=== PATIENT | male | born 1990 | race Two or more races ===

== ENCOUNTER 2021-12-20 05:36 | Observation (INO) ==
[2021-12-20] MEDS ORDERED: NS 500 ML IV 500 ML IV ONE (06:05)
[2021-12-20] MEDS ORDERED: LEVSIN/MAALOX/LIDOC VISC PO ONE (06:15)
--- NOTE | 2021-12-20 06:15 | DR.ABDMALE ---
HPI Time seen Time Seen by Provider: 12/20/21 06:03 PCP Primary Care Physician: ANSHUL HPI comment HPI Comment: A 31 y/o male presentiing with c/o epigastric and RUQ pain onset at about 0300 hrs. today. He can't adequately characterize the pain. It is non-radiating. This pain has been intermittent for a while. He relates a hx. of Gastritis. The pain is exacerbated by certain foods. He denies alcohol consumption. There is no associated nausea or vomiting. We had a friend of his translating for us via telephone. Complaint Chief Complaint:: PATIENT C/O A LOT OF PAIN IN STOMACH. PATIENT STATES PAIN IS ON THE RIGHT SIDE. PATIENT STATES PAIN STARTED AROUND 3AM AND DENIES TAKING ANYTHING FOR PAIN. COVID-19 Coronavirus risk:travel/contact w/high risk person: No Has patient experienced Coronavirus symptoms: No Reviewed Nurses Notes Review: Yes Mode of arrival Mode of Arrival: Ambulatory Timing Onset of Chief Complaint: 12/20/21 Came on: Suddenly Location Location: RUQ and Epigastric Severity Severity: Moderate Context Onset: Gradually and At Rest History of: None Modifying factors Worsening Factors: Food Improving Factors: Antacids Associated signs and symptoms Associated Signs and Symptoms: None PMH PMH Past Medical History: Yes Past Medical History Comment: Gastritis Past Surgical History: No Family History History of Family Medical Conditions: No Social History Alcohol Use: Occasionally Do you use any recreational Drugs:: No Lives With: Significant Other Lives Where: Home Travel Risk Coronavirus risk:travel/contact w/high risk person: No Has patient experienced Coronavirus symptoms: No Infectious screening Have you traveled outside the country in the last 6 months?: No Isolation: Standard ROS Review of Systems Constitutional: No Symptoms Reported Eyes: No Symptoms Reported ENTM: No Symptoms Reported Respiratoy: No Symptoms Reported Cardiovascular: No Symptoms Reported Gastrointestinal/Abdominal: Abdominal Pain (epigastric area) Genitourinary: No Symptoms Reported Neurological: No Symptoms Reported Musculoskeletal: No Symptoms Reported Integumentary: No Symptoms Reported Hematologic/Lymphatic: No Symptoms Reported Endocrine: No Symptoms Reported Psychiatric: No Symptoms Reported PE Vital Signs Vital Signs: Temp Pulse Resp BP Pulse Ox 12/20/21 06:21 16 12/20/21 05:38 97.2 F L 62 16 123/72 99 General Limitations: No Limitations General Appearance: Alert and In No Apparent Distress Head Head Exam: Normal Inspection, Atraumatic and Normocephalic Eyes Eye exam: Normal Appearance and EOMI ENT ENT Exam: Normal Exam, Normal Oropharynx, Normal External Ear Exam and Mucous Membranes Moist Neck Neck Exam: Normal Inspection, Full ROM and Trachea Midline Chest Chest Inspection: Normal Inspection and Symmetric Chest Wall Rise Respiratory Respiratory Exam: Normal Lung Sounds Bilat Cardiovascular Cardiovascular Exam: Regular Rate, Normal Rhythm, Normal Heart Sounds, +S1 and +S2 Abdominal Exam Abdominal Exam: Normal Inspection, Normal Bowel Sounds, Soft and Tenderness; negative Distention, Guarding, Rebound, Rigidity, Dimnished Bowel Sounds, Hyperactive Bowel Sounds, Hypoactive Bowel Sounds, Organomegaly, Trauma, Incision, Ascites, Mass, Bruit, Pulsatile Mass and Hernia Abdominal Tenderness: RUQ and Epigastrium Rectal Rectal Exam: Deferred Back Back Exam: Normal Inspection and Full ROM Extremeties Extremities Exam: Normal Inspection and Full ROM Exam: Male: Deferred Neurologic Neurological Exam: Alert and Oriented X3 Psychiatric Psychiatric Exam: Normal Affect and Normal Mood Skin Skin Exam: Intact COURSE Reevaluation 1st: Unchanged Consultation Consultation Comments: I did inform the pt. about the findings. I spoke with labor relations worker Surgeon (Denise) and he agree to admit the pt. to his service. He will be taken to OR later today. I informed the pt. of the plan also and he is in agree ment with it. Education/Counseling Education/Counseling: Patient, Family, Education and Counseling Educated On: Treatment, Diagnosis, Prognosis and Needs for Follow Up ROR Labs Reviewed Result Diagrams: 12/20/21 06:30 12/20/21 06:30 Laboratory: WBC 11.4 X10^3/uL (3.6-10.0) H 12/20/21 06:30 RBC 5.10 X10^6/uL (4.7-6.0) 12/20/21 06:30 Hgb 15.0 g/dL (13.5-18.0) 12/20/21 06:30 Hct 43.6 % (42.0-54.0) 12/20/21 06:30 MCV 85.5 fL (80.0-100.0) 12/20/21 06:30 MCH 29.5 pg (27.0-34.0) 12/20/21 06:30 MCHC 34.5 g/dL (33.0-35.0) 12/20/21 06:30 RDW 13.4 % (11.6-16.5) 12/20/21 06:30 Plt Count 250 X10^3/uL (150.0-450.0) 12/20/21 06:30 MPV 8.1 fL (7.4-11.0) 12/20/21 06:30 Neut % (Auto) 87.3 % (42.0-75.0) H 12/20/21 06:30 Lymph % (Auto) 7.8 % (21.0-51.0) L 12/20/21 06:30 [place] % (Auto) 4.5 % (0.0-13.0) 12/20/21 06:30 Eos % (Auto) 0.2 % (0.9-2.9) L 12/20/21 06:30 Baso % (Auto) 0.2 % (0.2-1.0) 12/20/21 06:30 Neut # (Auto) 9.9 x10^3/uL (2.2-4.8) H 12/20/21 06:30 Lymph # (Auto) 0.9 X10^3/uL (1.3-2.9) L 12/20/21 06:30 [place] # (Auto) 0.5 x10^3/uL (0.3-0.8) 12/20/21 06:30 Eos # (Auto) 0.0 x10^3/uL (0.0-0.2) 12/20/21 06:30 Baso # (Auto) 0.0 X10^3/uL (0.0-0.1) 12/20/21 06:30 Absolute Nucleated RBC 0.1 /100WBC 12/20/21 06:30 Sodium 146 mmol/L (136-145) H 12/20/21 06:30 Corrected Sodium TNP 12/20/21 06:30 Potassium 4.0 mmol/L (3.5-5.1) 12/20/21 06:30 Chloride 109 mmol/L (98-107) H 12/20/21 06:30 Carbon Dioxide 28.6 mmol/L (21-32) 12/20/21 06:30 BUN 7 mg/dL (7-18) 12/20/21 06:30 Creatinine 0.83 mg/dL (0.70-1.30) 12/20/21 06:30 Est GFR (MDRD) Af Amer > 60 (>60) 12/20/21 06:30 Est GFR (MDRD) Non-Af > 60 (>60) 12/20/21 06:30 Glucose 108 mg/dL (65-99) H 12/20/21 06:30 Calcium 8.4 mg/dL (8.5-10.1) L 12/20/21 06:30 Corrected Calcium TNP 12/20/21 06:30 Total Bilirubin 0.30 mg/dL (0.2-1.0) 12/20/21 06:30 AST 23 Units/L (15-37) 12/20/21 06:30 ALT 60 Units/L (12-78) 12/20/21 06:30 Alkaline Phosphatase 84 Units/L (46-116) 12/20/21 06:30 Total Protein 7.9 g/dL (6.4-8.2) 12/20/21 06:30 Albumin 4.1 g/dL (3.4-5.0) 12/20/21 06:30 Globulin 3.8 g/dL (2.5-4.5) 12/20/21 06:30 Albumin/Globulin Ratio 1.1 Ratio (1.1-2.1) 12/20/21 06:30 Amylase 39 Units/L (25-115) 12/20/21 06:30 Lipase 68 Units/L (73-393) L 12/20/21 06:30 Opioid Opioid Risk Tool Age (Den box if 16-45): Yes Total: 1 Total Score Risk Category: Low Risk Copyright: [facility] predicting aberrant behaviors Diagnosis Discharge Problem: Cholelithiasis and acute cholecystitis without obstruction ADDITIONAL NOTES Additional Notes Additional Notes: Name: Shoaib DEGROOT#: [id number]: [id number] : 1990ex: MLocation: ER Order Number(s): [id number](s):GALL BLADDER Ordering Physician: KAMRON CHAUDHARI Primary Care: NFD,None Service Date: 12/20/21 Service Time: 0610 HISTORY Right upper quadrant pain, nausea STUDY Gallbladder sonogram Technique: Multiple grayscale sonographic images were obtained. COMPARISON None FINDINGS The liver is normal in size and configuration and without cyst, mass, or biliary ductal dilatation. Limited Doppler evaluation was normal. Fall there is a gallstone in the area of the neck of the gallbladder. There is a question of mild gallbladder wall thickening. No pericholecystic fluid or intramural fluid identified. Early cholecystitis is possible. The common duct measures 3.1 mm. The right kidney measured 10.4 cm in length. No solid masses, hydronephrosis, stones, or perinephric fluid collections are identified. The pancreas was obscured by overlying bowel gas. IMPRESSION Cholelithiasis with gallbladder wall thickening possibly indicative of developing acute cholecystitis. If clinically indicated nuclear medicine biliary scan may be of further diagnostic value Electronically signed by: JULES GORMAN (Dec 20, 2021 07:02:05) Report Electronically signed: 12/20/21 0703 CC: Kamron Chaudhari
[2021-12-20] MEDS ORDERED: LEVSIN/MAALOX/LIDOC VISC ONE (06:19)
[2021-12-20 06:48] LABS: BASOPHILS % (AUTO) 0.2 % (0.2-1.0); EOSINOPHILS % (AUTO) 0.2 % (0.9-2.9); HEMATOCRIT 43.6 % (42.0-54.0); LYMPHOCYTES # (AUTO) 0.9 X10^3/uL (1.3-2.9); LYMPHOCYTES % (AUTO) 7.8 % (21.0-51.0); MEAN CORPUSCULAR HEMOGLOBIN 29.5 pg (27.0-34.0); MEAN CORPUSCULAR HGB CONC 34.5 g/dL (33.0-35.0); MEAN CORPUSCULAR VOLUME 85.5 fL (80.0-100.0); MEAN PLATELET VOLUME 8.1 fL (7.4-11.0); MONOCYTES # (AUTO) 0.5 x10^3/uL (0.3-0.8); MONOCYTES % (AUTO) 4.5 % (0.0-13.0); NEUTROPHILS # (AUTO) 9.9 x10^3/uL (2.2-4.8); NEUTROPHILS % (AUTO) 87.3 % (42.0-75.0); RED CELL DISTRIBUTION WIDTH 13.4 % (11.6-16.5); WHITE BLOOD COUNT 11.4 X10^3/uL (3.6-10.0)
--- NOTE | 2021-12-20 07:03 | US ---
HISTORYRight upper quadrant pain, nauseaSTUDYGallbladder sonogramTechnique: Multiple grayscale sonographic images were obtained.COMPARISONNoneFINDINGSThe liver is normal in size and configuration and without cyst, mass, or biliary ductal dilatation. Limited Doppler evaluation was normal. Fall there is a gallstone in the area of the neck of the gallbladder. There is a question of mild gallbladder wall thickening. No pericholecystic fluid or intramural fluid identified. Early cholecystitis is possible. The common duct measures 3.1 mm. The right kidney measured 10.4 cm in length. No solid masses, hydronephrosis, stones, or perinephric fluid collections are identified. The pancreas was obscured by overlying bowel gas.IMPRESSIONCholelithiasis with gallbladder wall thickening possibly indicative of developing acute cholecystitis. If clinically indicated nuclear medicine biliary scan may be of further diagnostic valueElectronically signed by: JULES GORMAN (Dec 20, 2021 07:02:05)
[2021-12-20 07:05] LABS: ALANINE AMINOTRANSFERASE 60 Units/L (12-78); ALBUMIN 4.1 g/dL (3.4-5.0); ALKALINE PHOSPHATASE 84 Units/L (46-116); AMYLASE 39 Units/L (25-115); ASPARTATE AMINO TRANSFERASE 23 Units/L (15-37); BLOOD UREA NITROGEN 7 mg/dL (7-18); CALCIUM 8.4 mg/dL (8.5-10.1); CARBON DIOXIDE 28.6 mmol/L (21-32); CHLORIDE 109 mmol/L (98-107); CREATININE 0.83 mg/dL (0.70-1.30); LIPASE 68 Units/L (73-393); SODIUM 146 mmol/L (136-145); TOTAL PROTEIN 7.9 g/dL (6.4-8.2); eGFR NON BLACK RACES > 60 (>60)
[2021-12-20] MEDS ORDERED: CIPRO IV 400 MG PREMIX* 400 MG/200 ML IV.SOLN. IV ONE ×2 (07:29→07:33)
[2021-12-20] MEDS ORDERED: NS 1,000 ML IV 1,000 ML ONE (07:33)
--- NOTE | 2021-12-20 07:53 | DR.ABDMALE ---
HPI Time seen Time Seen by Provider: 12/20/21 06:03 PCP Primary Care Physician: NFD Complaint Chief Complaint:: PATIENT C/O A LOT OF PAIN IN STOMACH. PATIENT STATES PAIN IS ON THE RIGHT SIDE. PATIENT STATES PAIN STARTED AROUND 3AM AND DENIES TAKING ANY THING FOR PAIN. COVID-19 Coronavirus risk:travel/contact w/high risk person: No Has patient experienced Coronavirus symptoms: No Mode of arrival Mode of Arrival: Ambulatory Timing Onset of Chief Complaint: 12/20/21 Came on: Suddenly PMH PMH Past Medical History: Yes Past Medical History Comment: Gastritis Past Surgical History: No Family History History of Family Medical Conditions: No Social History Alcohol Use: Occasionally Do you use any recreational Drugs:: No Lives With: Significant Other Lives Where: Home Travel Risk Coronavirus risk:travel/contact w/high risk person: No Has patient experienced Coronavirus symptoms: No Infectious screening Have you traveled outside the country in the last 6 months?: No Isolation: Standard PE Vital Signs Vital Signs: Temp Pulse Resp BP Pulse Ox 12/20/21 07:38 116/59 12/20/21 06:21 16 12/20/21 05:38 97.2 F L 62 16 123/72 99 COURSE Treatment Treatment: Pt's. care will be endorsed over to incoming provider (dr. Fierro). ROR Labs Reviewed Result Diagrams: 12/20/21 06:30 12/20/21 06:30 Laboratory: WBC 11.4 X10^3/uL (3.6-10.0) H 12/20/21 06:30 RBC 5.10 X10^6/uL (4.7-6.0) 12/20/21 06:30 Hgb 15.0 g/dL (13.5-18.0) 12/20/21 06:30 Hct 43.6 % (42.0-54.0) 12/20/21 06:30 MCV 85.5 fL (80.0-100.0) 12/20/21 06:30 MCH 29.5 pg (27.0-34.0) 12/20/21 06:30 MCHC 34.5 g/dL (33.0-35.0) 12/20/21 06:30 RDW 13.4 % (11.6-16.5) 12/20/21 06:30 Plt Count 250 X10^3/uL (150.0-450.0) 12/20/21 06:30 MPV 8.1 fL (7.4-11.0) 12/20/21 06:30 Neut % (Auto) 87.3 % (42.0-75.0) H 12/20/21 06:30 Lymph % (Auto) 7.8 % (21.0-51.0) L 12/20/21 06:30 [place] % (Auto) 4.5 % (0.0-13.0) 12/20/21 06:30 Eos % (Auto) 0.2 % (0.9-2.9) L 12/20/21 06:30 Baso % (Auto) 0.2 % (0.2-1.0) 12/20/21 06:30 Neut # (Auto) 9.9 x10^3/uL (2.2-4.8) H 12/20/21 06:30 Lymph # (Auto) 0.9 X10^3/uL (1.3-2.9) L 12/20/21 06:30 [place] # (Auto) 0.5 x10^3/uL (0.3-0.8) 12/20/21 06:30 Eos # (Auto) 0.0 x10^3/uL (0.0-0.2) 12/20/21 06:30 Baso # (Auto) 0.0 X10^3/uL (0.0-0.1) 12/20/21 06:30 Absolute Nucleated RBC 0.1 /100WBC 12/20/21 06:30 Sodium 146 mmol/L (136-145) H 12/20/21 06:30 Corrected Sodium TNP 12/20/21 06:30 Potassium 4.0 mmol/L (3.5-5.1) 12/20/21 06:30 Chloride 109 mmol/L (98-107) H 12/20/21 06:30 Carbon Dioxide 28.6 mmol/L (21-32) 12/20/21 06:30 BUN 7 mg/dL (7-18) 12/20/21 06:30 Creatinine 0.83 mg/dL (0.70-1.30) 12/20/21 06:30 Est GFR (MDRD) Af Amer > 60 (>60) 12/20/21 06:30 Est GFR (MDRD) Non-Af > 60 (>60) 12/20/21 06:30 Glucose 108 mg/dL (65-99) H 12/20/21 06:30 Calcium 8.4 mg/dL (8.5-10.1) L 12/20/21 06:30 Corrected Calcium TNP 12/20/21 06:30 Total Bilirubin 0.30 mg/dL (0.2-1.0) 12/20/21 06:30 AST 23 Units/L (15-37) 12/20/21 06:30 ALT 60 Units/L (12-78) 12/20/21 06:30 Alkaline Phosphatase 84 Units/L (46-116) 12/20/21 06:30 Total Protein 7.9 g/dL (6.4-8.2) 12/20/21 06:30 Albumin 4.1 g/dL (3.4-5.0) 12/20/21 06:30 Globulin 3.8 g/dL (2.5-4.5) 12/20/21 06:30 Albumin/Globulin Ratio 1.1 Ratio (1.1-2.1) 12/20/21 06:30 Amylase 39 Units/L (25-115) 12/20/21 06:30 Lipase 68 Units/L (73-393) L 12/20/21 06:30 Opioid Opioid Risk Tool Age (Den box if 16-45): Yes Total: 1 Total Score Risk Category: Low Risk Copyright: [facility] predicting aberrant behaviors Diagnosis Discharge Problem: Cholelithiasis and acute cholecystitis without obstruction
[2021-12-20] MEDS ORDERED: NS 1,000 ML IV 1,000 ML IV SCH (08:00)
[2021-12-20] MEDS ORDERED: ZOFRAN INJ 4 MG VIAL IVP PRN (09:22)
--- NOTE | 2021-12-20 10:03 | DR.H&P ---
H&P History & Physical for Day of: H&P Date: 12/20/21 Chief Complaint Chief Complaint: Right upper quadrant pain Allergies Allergies Allergy/AdvReac Type Severity Reaction Status Date / Time No Known Drug Allergies Allergy Verified 12/20/21 07:45 History of Present Illness History of Present Illness: 31 year old male with several Day history of right upper quadrant pain. He has had such pain off and on for many years. He was evaluated in the emergency room. He was afebrile with normal liver function tests. Ultrasound shows cholelithiasis with thickened wall gallbladder consistent with cholecystitis. While in the ER he has a positive Covid test . He denies cough, fever or SOB. CXR is pending Past Medical History Past Medical History: denies Alzheimers, Anemia, Angina, Anxiety, Arthritis, Asthma, Cirrhosis, CHF, COPD, Coronary Artery Disease, CVA, Dementia, Depressi on, Diabetes, Dialysis, Dyslipidemia, Migraines, GERD, Gout, Headaches, Hypertension, Hyperthyroidism, Hypothyroidism, Kidney Stones, Liver Disease, CT, PUD, Renal Disease, Schizophrenia, Seizures, Sleep Apnea, SVT and Ventricular Tachycardia Past Surgical History Surgical History: denies Unknown, No History, AAA Repair, Abdominal Surgery, Angioplasty/Stents, Appendectomy, Bowel Resection, , CABG/Valve Surgery, Carotid Endarterectomy, Cholecystectomy, Ectopic , DEBT COUNSELOR Surgery, Hysterectomy, Joint Replacement, Mastectomy, Neurosurgery, Organ Transplant, Ortho Surgery, Spleenectomy, Thyroidectomy, Tonsillectomy, TURP, Weight Loss Surgery, Lithotripsy and Other Social History Does patient currently use any type of tobacco product: No Have you used tobacco products in the last 12 months: No Does any household member use tobacco: No Alcohol Use: Occasionally Prescription drug monitoring program results: PDMP was not reviewed Medications Home Medications: No Known Drug Allergies Allergy (Verified 12/20/21 07:45) Labs Result Diagrams: 12/20/21 06:30 12/20/21 06:30 Labs: Laboratory WBC 11.4 X10^3/uL (3.6-10.0) H 12/20/21 06:30 RBC 5.10 X10^6/uL (4.7-6.0) 12/20/21 06:30 Hgb 15.0 g/dL (13.5-18.0) 12/20/21 06:30 Hct 43.6 % (42.0-54.0) 12/20/21 06:30 MCV 85.5 fL (80.0-100.0) 12/20/21 06:30 MCH 29.5 pg (27.0-34.0) 12/20/21 06:30 MCHC 34.5 g/dL (33.0-35.0) 12/20/21 06:30 RDW 13.4 % (11.6-16.5) 12/20/21 06:30 Plt Count 250 X10^3/uL (150.0-450.0) 12/20/21 06:30 MPV 8.1 fL (7.4-11.0) 12/20/21 06:30 Neut % (Auto) 87.3 % (42.0-75.0) H 12/20/21 06:30 Lymph % (Auto) 7.8 % (21.0-51.0) L 12/20/21 06:30 [place] % (Auto) 4.5 % (0.0-13.0) 12/20/21 06:30 Eos % (Auto) 0.2 % (0.9-2.9) L 12/20/21 06:30 Baso % (Auto) 0.2 % (0.2-1.0) 12/20/21 06:30 Neut # (Auto) 9.9 x10^3/uL (2.2-4.8) H 12/20/21 06:30 Lymph # (Auto) 0.9 X10^3/uL (1.3-2.9) L 12/20/21 06:30 [place] # (Auto) 0.5 x10^3/uL (0.3-0.8) 12/20/21 06:30 Eos # (Auto) 0.0 x10^3/uL (0.0-0.2) 12/20/21 06:30 Baso # (Auto) 0.0 X10^3/uL (0.0-0.1) 12/20/21 06:30 Absolute Nucleated RBC 0.1 /100WBC 12/20/21 06:30 Sodium 146 mmol/L (136-145) H 12/20/21 06:30 Corrected Sodium TNP 12/20/21 06:30 Potassium 4.0 mmol/L (3.5-5.1) 12/20/21 06:30 Chloride 109 mmol/L (98-107) H 12/20/21 06:30 Carbon Dioxide 28.6 mmol/L (21-32) 12/20/21 06:30 BUN 7 mg/dL (7-18) 12/20/21 06:30 Creatinine 0.83 mg/dL (0.70-1.30) 12/20/21 06:30 Est GFR (MDRD) Af Amer > 60 (>60) 12/20/21 06:30 Est GFR (MDRD) Non-Af > 60 (>60) 12/20/21 06:30 Glucose 108 mg/dL (65-99) H 12/20/21 06:30 Calcium 8.4 mg/dL (8.5-10.1) L 12/20/21 06:30 Corrected Calcium TNP 12/20/21 06:30 Total Bilirubin 0.30 mg/dL (0.2-1.0) 12/20/21 06:30 AST 23 Units/L (15-37) 12/20/21 06:30 ALT 60 Units/L (12-78) 12/20/21 06:30 Alkaline Phosphatase 84 Units/L (46-116) 12/20/21 06:30 Total Protein 7.9 g/dL (6.4-8.2) 12/20/21 06:30 Albumin 4.1 g/dL (3.4-5.0) 12/20/21 06:30 Globulin 3.8 g/dL (2.5-4.5) 12/20/21 06:30 Albumin/Globulin Ratio 1.1 Ratio (1.1-2.1) 12/20/21 06:30 Amylase 39 Units/L (25-115) 12/20/21 06:30 Lipase 68 Units/L (73-393) L 12/20/21 06:30 SARS CoV-2 RNA Rapid EDUARDA Positive (NEGATIVE) A 12/20/21 07:33 LFTS WNL Review of Systems Constitutional: See HPI Eyes: No Symptoms Reported ENT: No Symptoms Reported Respiratory: No Symptoms Reported Cardiovascular: No Symptoms Reported Gastrointestinal: Nausea and Abdominal Pain (RUQ) Genitourinary: No Symptoms Reported Musculoskeletal: No Symptoms Reported Skin: No Symptoms Reported Neurological: No Symptoms Reported Physical Exam Vital Signs: Temperature 97.2 F Pulse Rate 60 Respiratory Rate 16 Blood Pressure 115/78 O2 Sat by Pulse Oximetry 100 Oriented: Normal, Time, Place and Other ( History taken using an electronics teacher over the phone. ) Eyes: Normal Ear: Normal Nose: Normal Throat: Normal Respiratory: Clear Throughout Cardiovascular: Normal : Normal Auscultation: Bowel Sounds: Normal Tenderness: RUQ ( no rebound) Skin: Normal Musculoskeletal: Normal Mood Description: Calm Affect: Normal Speech Pattern: Clear Assessment/Plan (1) Cholelithiasis and acute cholecystitis without obstruction: Status: Acute Plan: Will plan laparoscopic cholecystectomy. I have explained the procedure, risk and benefits via an electronics teacher. He understands and agrees to proceed. Risk include bleeding, infection, possibility of converting to an open operation and possible bile duct injury. He agrees to proceed . Review H&P Reviewed: Yes Patient was examined?: Yes
[2021-12-20 10:39] VITALS: BMI 31.2
--- NOTE | 2021-12-20 10:52 | RAD ---
HISTORYPreop cholecystectomySTUDYChest AP portableCOMPARISONNoneFINDINGSHeart size is normal. Jennifer are normal. Lungs are hypoinflated but clear. No pleural effusion or pneumothorax is identified. Bony thorax is unremarkable.IMPRESSIONLungs hypoinflated but clearElectronically signed by: JULES GORMAN (Dec 20, 2021 10:51:09)
[2021-12-20] MEDS: NS 1,000 ML IV 1,000 ML IV SCH ×3 (12:11→20:22)
[2021-12-20] MEDS ORDERED: BRIDION ONE (12:51)
[2021-12-20] MEDS ORDERED: FENTANYL VIAL INJ 100 mcg ONE (12:51)
[2021-12-20] MEDS ORDERED: OFIRMEV IV 1000 MG VIAL 1,000 MG/100 ML VIAL IV ONE (12:52)
[2021-12-20] MEDS ORDERED: ZEMURON 50 MG VIAL ONE (12:53)
[2021-12-20] MEDS ORDERED: ANCEF VIAL 1 GRAM ONE (16:39)
[2021-12-20] MEDS ORDERED: NS 100 ML IV 100 ML ONE (16:40)
[2021-12-20] MEDS ORDERED: LR 1,000 ML IV 1,000 ML IV ONE (18:24)
[2021-12-20] MEDS ORDERED: LTA KIT LIDOCAINE 4% ONE (18:44)
[2021-12-20] MEDS ORDERED: DECADRON INJ ONE (18:44)
[2021-12-20] MEDS ORDERED: XYLOCAINE 2 % (PLAIN) ONE (18:44)
[2021-12-20] MEDS ORDERED: SUPRANE ONE (18:44)
[2021-12-20] MEDS ORDERED: ZOFRAN INJ 4 MG VIAL ONE (18:44)
[2021-12-20] MEDS ORDERED: TORADOL 30 MG VIAL ONE (18:44)
[2021-12-20] MEDS ORDERED: DIPRIVAN VIAL ONE (18:44)
[2021-12-20] MEDS ORDERED: VERSED ONE (18:44)
[2021-12-20] MEDS ORDERED: MARCAINE 0.5% ONE (18:53)
--- NOTE | 2021-12-20 19:33 | OR.IMMED ---
IMMEDIATE POST-OP NOTE Immediate Post-Op Note Pre-Op Diagnosis: Cholelithiasis, cholecystitis Post-Op Diagnosis: same Procedure: laparoscopic cholecystectomy Description of Procedure: see operative summary Surgeon/Pneumatic Deicer Inspector: Denise Findings: as above Specimens Removed: gallbladder Estimated Blood Loss: less than 10 cc's Drains: NONE Complications: none Discharge Progress Notes: patient will return to the floor and he tolerates a diet will be discharged home. He does have a diagnosis of Covid but is completely asymptomatic. Condition: Stable Final Diagnosis: Cholelithiasis, cholecystitis
[2021-12-20] MEDS ORDERED: CIPRO IV 400 MG PREMIX* 400 MG/200 ML IV.SOLN. IV SCH (21:00)
--- NOTE | 2021-12-20 22:12 | W.DIS.FURT ---
Summary of Discharge Discharge Summary of Date Date of Exam: 12/20/21 Admission Date Date of Admission: 12/20/21 Admission Diagnosis Patient Problems (Updated 12/20/21 @ 07:34 by CHITRA CHAUDHARI) Cholelithiasis and acute cholecystitis without obstruction (Acute) K80.00 Hospital Course: 31 year old male who presented to the emergency room with several Day history of right upper quadrant pain and tenderness. Ultrasound consistent with cholelithiasis with cholecystitis. The patient was placed in observation and taken to the operating Suite where he underwent uncomplicated laparoscopic cholecystectomy. He received IV antibiotics prior to the procedure. The patient has done well. There is no need for additional antibiotics. He will be discharged home with a prescription for Percocet, 5 mg tablets, one every six hours PRN pain, #20. He will follow up with me in 1 week Vital Signs: Vital Signs (72 hours) 12/20/21 05:38 12/20/21 06:21 12/20/21 07:38 Temperature 97.2 F L Pulse Rate 62 Pulse Rate [Radial] Respiratory Rate 16 16 Blood Pressure 123/72 116/59 Blood Pressure [Left Arm] O2 Sat by Pulse Oximetry 99 12/20/21 07:39 12/20/21 07:45 12/20/21 08:00 Temperature Pulse Rate 70 60 58 L Pulse Rate [Radial] Respiratory Rate Blood Pressure 110/66 Blood Pressure [Left Arm] O2 Sat by Pulse Oximetry 99 100 100 12/20/21 08:15 12/20/21 08:30 12/20/21 08:45 Temperature Pulse Rate 67 64 60 Pulse Rate [Radial] Respiratory Rate Blood Pressure 115/78 Blood Pressure [Left Arm] O2 Sat by Pulse Oximetry 100 100 100 12/20/21 12:00 12/20/21 16:00 12/20/21 19:30 Temperature 97.5 F L 97.9 F 97.0 F L Pulse Rate 62 Pulse Rate [Radial] 59 L 57 L Respiratory Rate 18 24 18 Blood Pressure 111/62 Blood Pressure [Left Arm] 101/56 111/63 O2 Sat by Pulse Oximetry 100 100 100 12/20/21 19:35 12/20/21 19:40 12/20/21 19:45 Temperature Pulse Rate 72 78 67 Pulse Rate [Radial] Respiratory Rate 18 18 18 Blood Pressure 122/71 133/91 138/91 Blood Pressure [Left Arm] O2 Sat by Pulse Oximetry 100 100 100 Labs: Laboratory Last Values WBC 11.4 X10^3/uL (3.6-10.0) H 12/20/21 06:30 RBC 5.10 X10^6/uL (4.7-6.0) 12/20/21 06:30 Hgb 15.0 g/dL (13.5-18.0) 12/20/21 06:30 Hct 43.6 % (42.0-54.0) 12/20/21 06:30 MCV 85.5 fL (80.0-100.0) 12/20/21 06:30 MCH 29.5 pg (27.0-34.0) 12/20/21 06:30 MCHC 34.5 g/dL (33.0-35.0) 12/20/21 06:30 RDW 13.4 % (11.6-16.5) 12/20/21 06:30 Plt Count 250 X10^3/uL (150.0-450.0) 12/20/21 06:30 MPV 8.1 fL (7.4-11.0) 12/20/21 06:30 Neut % (Auto) 87.3 % (42.0-75.0) H 12/20/21 06:30 Lymph % (Auto) 7.8 % (21.0-51.0) L 12/20/21 06:30 Piute % (Auto) 4.5 % (0.0-13.0) 12/20/21 06:30 Eos % (Auto) 0.2 % (0.9-2.9) L 12/20/21 06:30 Baso % (Auto) 0.2 % (0.2-1.0) 12/20/21 06:30 Neut # (Auto) 9.9 x10^3/uL (2.2-4.8) H 12/20/21 06:30 Lymph # (Auto) 0.9 X10^3/uL (1.3-2.9) L 12/20/21 06:30 Piute # (Auto) 0.5 x10^3/uL (0.3-0.8) 12/20/21 06:30 Eos # (Auto) 0.0 x10^3/uL (0.0-0.2) 12/20/21 06:30 Baso # (Auto) 0.0 X10^3/uL (0.0-0.1) 12/20/21 06:30 Absolute Nucleated RBC 0.1 /100WBC 12/20/21 06:30 Sodium 146 mmol/L (136-145) H 12/20/21 06:30 Corrected Sodium TNP 12/20/21 06:30 Potassium 4.0 mmol/L (3.5-5.1) 12/20/21 06:30 Chloride 109 mmol/L (98-107) H 12/20/21 06:30 Carbon Dioxide 28.6 mmol/L (21-32) 12/20/21 06:30 BUN 7 mg/dL (7-18) 12/20/21 06:30 Creatinine 0.83 mg/dL (0.70-1.30) 12/20/21 06:30 Est GFR (MDRD) Af Amer > 60 (>60) 12/20/21 06:30 Est GFR (MDRD) Non-Af > 60 (>60) 12/20/21 06:30 Glucose 108 mg/dL (65-99) H 12/20/21 06:30 Calcium 8.4 mg/dL (8.5-10.1) L 12/20/21 06:30 Corrected Calcium TNP 12/20/21 06:30 Total Bilirubin 0.30 mg/dL (0.2-1.0) 12/20/21 06:30 AST 23 Units/L (15-37) 12/20/21 06:30 ALT 60 Units/L (12-78) 12/20/21 06:30 Alkaline Phosphatase 84 Units/L (46-116) 12/20/21 06:30 Total Protein 7.9 g/dL (6.4-8.2) 12/20/21 06:30 Albumin 4.1 g/dL (3.4-5.0) 12/20/21 06:30 Globulin 3.8 g/dL (2.5-4.5) 12/20/21 06:30 Albumin/Globulin Ratio 1.1 Ratio (1.1-2.1) 12/20/21 06:30 Amylase 39 Units/L (25-115) 12/20/21 06:30 Lipase 68 Units/L (73-393) L 12/20/21 06:30 SARS CoV-2 RNA Rapid EDUARDA Positive (NEGATIVE) A 12/20/21 07:33 Tissue Pathology To follow 12/20/21 19:11 Reason For Visit: CHOLETITHIASIA WITH CHOLECYSTITIS Discharge Date Discharge Date: 12/20/21 Discharge Diagnosis All Active Problems (Updated 12/20/21 @ 07:34 by CHITRA CHAUDHARI) Cholelithiasis and acute cholecystitis without obstruction (Acute) Plan of Treatment: Continue with present treatment and follow up plan. Pt is to keep follow up appointment as instructed and take medications as ordered. Discharge Medications Discharge Medications: No Known Drug Allergies Allergy (Verified 12/20/21 07:45) CONTINUE taking the following medications NK 12/20/21 [History] New Prescriptions oxycodone-acetaminophen [Percocet] 1 tab PO Q6H PRN #20 tab MDD 4 12/20/21 [Rx] Follow up and Referral Follow Up: 1 Week (Dr. Walker) Discharge Disposition Assessment: See hospital course Discharge Disposition: stable Discharge Condition: stable Discharge Plan Discharge Plan Hospital Course: 31 year old male who presented to the emergency room with several Day history of right upper quadrant pain and tenderness. Ultrasound consistent with cholelithiasis with cholecystitis. The patient was placed in observation and taken to the operating Suite where he underwent uncomplicated laparoscopic cholecystectomy. He received IV antibiotics prior to the procedure. The patient has done well. There is no need for additional antibiotics. He will be discharged home with a prescription for Percocet, 5 mg tablets, one every six hours PRN pain, #20. He will follow up with me in 1 week Patient Disposition: 01 HOME, SELF-CARE Condition: Stable Health Concerns: Post Hospitalization: new medications and changes needed to prevent readmission or further decline. Pt educated and given instructions on all concerns. Care Plan Goals: Discharged home. May shower tomorrow. Plan of Treatment: Continue with present treatment and follow up plan. Pt is to keep follow up appointment as instructed and take medications as ordered. Assessment: See hospital course Prescription drug monitoring program results: PDMP was not reviewed Prescriptions: New oxycodone-acetaminophen [Percocet] 5-325 mg tablet 1 tab PO Q6H MDD 4 PRNQty: 20 RF: 0 No Action NK RF: 0 Orders to Discharge Patient Discharge Orders: Discharge (Routine); Ordered 12/20/21 Ordered By: Clement Walker Follow ups/Referrals Follow ups/Referrals: [facility],None [Primary Care Provider] - 3 days Instructions Instructions: Laparoscopic Cholecystectomy, Care After Stand Alone Forms: Excuse From Work or School, Precautions for COVID19, [facility], Patient Portal, Social Distancing
[2021-12-20] MEDS ORDERED: PERCOCET TAB 5/325 MG PO STA (22:48)
[2021-12-21 00:10] VITALS: BP 129/88
--- NOTE | 2021-12-22 19:25 | DR.OPNOTE ---
OP NOTE Pre-Op Diagnosis: Cholelithiasis and cholecystitis Post-Op Diagnosis: same Procedure Date Date Of Procedure: 12/20/21 Procedure: PROCEDURE : LAPAROSCOPIC CHOLECYSTECTOMY NARRATIVE :Patient was taken to the operative Suite, placed in the Supine p osition and general endotracheal anesthesia induced. The entire abdomen was prepped and draped in sterile fashion and he was positioned in slight reverse Trendelenburg position and rolled to his left. Time out for the procedure performed . Curvilinear 3cm incision made below the umbilicus in the midline and dissection carried down to the midline fascia and holding sutures of 0 Vicryl placed on either side of the midline fascia . Fascia opened with a 15 knife blade and the peritoneum opened with Metzenbaum scissors. Josef cannula placed and secured with the holding sutures. The abdomen was insufflated to 15 mm of Mercury with carbon dioxide. Under direct vision two 5 mm trocars placed along the right costal margin and a 5 mm trocar placed in the epigastrium. Gallbladder was dilated with evidence of thickened gallbladder wall .It was grasped at the fundus and the infundibulum with the dissection carried out in Calot's triangle. The critical view of safety was obtained showing both the cystic artery and the cystic duct. Each were clipped proximally and distally and divided. Peritoneum of the gallbladder incised with electrocautery and the gallbladder removed from the liver bed. The gallbladder removed through the umbilical port. The Josef canula was replaced and hemostasis obtained with electrocautery. The surgical site irrigated and suctioned free. Surgicel placed in the liver bed and all trocars removed. The fascia of the initial incision closed with interrupted 0 Vicryl sutures . All incisions then close with interrupted 3-0 Vicryl sutures in subcutaneous fashion . A total of 10 cc's of plain 0. 5% Marcaine distributed between the four laparoscopic incisions. The patient was then to the recovery room in good condition after extubation. Type of Anesthesia: General Anesthetic w/ETT Findings: cholelithiasis and chronic cholecystitis Specimen/Pathology: gallbladder Type of Fluids Used:: Lactated Ringers EBL: 10cc h Drains/Tubes Placed: None Needle/Sponge Count:: correct Disposition/Condition: Pt. tolerated procedure without difficulty. Extubated in the OR and taken to PACU in stable condition.
== END 2021-12-21 00:20 | disposition home or self-care (01) ==
LOC: ER 05:37 → MED/SURG 05:37 → ICU 09:42
PROVIDERS: ADMIT Surgery; ATTEND Surgery